=== PATIENT | female | born 1985 | race Caucasian/White ===

== ENCOUNTER → 2018-09-16 | Outpatient (CLI) | payer BC ==
[~2018-09-16] MED LIST: BCP; DOCU100C37 PO; FERR325T18 PO; IBUP-1780 PO; OXYC-465 PO; PREN1TAB71 PO
--- NOTE | 2018-09-16 13:24 | Diagnostic Imaging Report ---
INDICATION: survey. TECHNIQUE: Multiple real-time grayscale images were obtained over the gravid uterus. COMPARISON: None. FINDINGS: There is a single live fetus in a transverse presentation with head to the maternal left. heart rate was recorded at 142 beats per minute. The placenta is posterior and fundal. Amniotic fluid volume appears within normal limits. survey demonstrates kidneys and bladder to be unremarkable. The brain is unremarkable. There is a four-chamber heart. There is a three-vessel cord with normal insertion. The spine is unremarkable. Evaluation of the stomach is limited. Biometrical measurements are as follows: Biparietal 5.13 cm, age 21 weeks 4 days. Head circumference 18.74 cm, age 21 weeks 1 days. Abdominal circumference 16.90 cm, age 22 weeks 0 days. Femur length 3.47 cm, age 21 weeks 0 days. Sonographic estimate age: 21 weeks 3 days. Sonographic estimated date of delivery: 01/24/2019. Estimated Weight: 423 gm (+/- 62 gm). LMP percentile: 95%. heart rate: 142 beats per minute. number: 1 of 1. IMPRESSION: Single live fetus of approximately 21 weeks 3 days gestational age with estimated date of confinement sonographically of 01/24/2019. survey is unremarkable, although stomach was not well seen today. Dictated by: Dictated on workstation # [id number]
== END ==
LOC: RAD 10:01
PROVIDERS: ATTEND Obstetrics & Gynecology
DX: Z36.89 Encounter for other specified antenatal screening (principal); Z3A.21 21 weeks gestation of pregnancy
CPT/HCPCS: 76805

== ENCOUNTER 2019-01-30 06:00 | Inpatient (IN) | payer BC ==
[2019-01-30] VITALS (61 sets, daily range): BP systolic 75–133; BP diastolic 51–88
[~2019-01-30] VITALS: Ht 154.9 cm; Wt 86.0 kg
--- NOTE | 2019-01-30 05:55 | NUR ---
VERÓNICA ORTIZ presented to unit via ambulatory from home, accompanied by , with c/o . VERÓNICA ORTIZ weighed, gowned, voided, and to bed. EFHM and TOCO applied, VS taken. VERÓNICA ORTIZ oriented to bed controls, call light, TV, heat, and A/C controls.
[2019-01-30] MEDS ORDERED: ASPI-586 PO (06:52)
--- OUTSIDE RECORDS SUMMARY | 2019-01-30 06:52 | XMS REPORT | Clinical Summary ---
Author Author [facility] Organization 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
--- OUTSIDE RECORDS SUMMARY | 2019-01-30 06:53 | XMS REPORT | Continuity of Care Document ---
Author Organization Unknown Address Unknown Allergies Active Description Code Type Severity Reaction Onset Reported/Identified Relationship to Patient Clinical Status Yes codeine [id number] Drug Allergy Mild N/A 01/13/2014 Yes meperidine [id number] Drug Allergy Mild N/A 01/13/2014 Yes morphine [id number] Drug Allergy Mild N/A 01/13/2014 Yes oxycodone [id number] Drug Allergy Mild UPSET STOMACH, 01/13/2014 Yes latex [id number] Drug Allergy Unknown N/A 04/10/2016 Medications There is no data. Problems Date Dx Coded Attending Type Code Diagnosis Diagnosed By 01/13/2014 NICK PEREZ, HANNAH Waters Ot 789.00 ABDOMINAL PAIN, UNSPECIFIED SITE 04/06/2016 PROSPER PEREZ, LORENA Garcia Ot O14.03 MILD TO MODERATE PRE-ECLAMPSIA, THIRD TR 04/09/2016 PROSPER PEREZ, LORENA Garcia Ot O14.03 MILD TO MODERATE PRE-ECLAMPSIA, THIRD TR 04/10/2016 PROSPER PEREZ, LORENA Garcia Ot O14.03 MILD TO MODERATE PRE-ECLAMPSIA, THIRD TR 04/10/2016 PROSPER PEREZ, LORENA Garcia Ot O14.03 MILD TO MODERATE PRE-ECLAMPSIA, THIRD TR 04/10/2016 PROSPER PEREZ, LORENA Garcia Ot O14.03 MILD TO MODERATE PRE-ECLAMPSIA, THIRD TR 04/10/2016 PROSPER PEREZ, LORENA Garcia Ot O14.03 MILD TO MODERATE PRE-ECLAMPSIA, THIRD TR 04/10/2016 PROSPER PEREZ, LORENA Garcia Ot O14.03 MILD TO MODERATE PRE-ECLAMPSIA, THIRD TR 04/10/2016 PROSPER PEREZ, LORENA Garcia Ot O14.03 MILD TO MODERATE PRE-ECLAMPSIA, THIRD TR 04/13/2016 PROSPER PEREZ, LORENA Garcia Ot O14.03 MILD TO MODERATE PRE-ECLAMPSIA, THIRD TR 04/13/2016 LORENA CHENG MD, Ot O14.03 MILD TO MODERATE PRE-ECLAMPSIA, THIRD TR 04/13/2016 LORENA CHENG MD, Ot D62 ACUTE POSTHEMORRHAGIC ANEMIA 04/13/2016 LORENA CHENG MD, Ot L24.89 IRRITANT CONTACT DERMATITIS DUE TO OTHER 04/13/2016 LORENA CHENG MD, Ot L25.9 UNSPECIFIED CONTACT DERMATITIS, UNSPECIF 04/13/2016 LORENA CHENG MD, Ot O14.23 HELLP SYNDROME (HELLP), THIRD TRIMESTER 04/13/2016 LORENA CHENG MD, Ot O90.81 ANEMIA OF THE PUERPERIUM 04/13/2016 LORENA CHENG MD, Ot O99.713 DISEASES OF THE SKIN, SUBCU COMP PREGNAN 04/13/2016 LORENA CHENG MD, Ot O99.719 DISEASES OF THE SKIN, SUBCU COMP PREGNAN 04/13/2016 LORENA CHENG MD Ot Z23 ENCOUNTER FOR IMMUNIZATION 04/13/2016 LORENA CHENG MD Ot Z37.0 SINGLE LIVE 04/13/2016 LORENA CHENG MD, Ot Z3A.39 39 WEEKS GESTATION OF 04/15/2016 LORENA CHENG MD, Ot O14.03 MILD TO MODERATE PRE-ECLAMPSIA, THIRD TR 04/17/2016 LORENA CHENG MD, Ot O14.03 MILD TO MODERATE PRE-ECLAMPSIA, THIRD TR 04/17/2016 PROSPER PEREZ, LORENA Garcia Ot O14.03 MILD TO MODERATE PRE-ECLAMPSIA, THIRD TR 04/22/2016 PROSPER PEREZ, LORENA Garcia Ot O14.03 MILD TO MODERATE PRE-ECLAMPSIA, THIRD TR 05/14/2016 LORENA CHENG MD, Ot O14.03 MILD TO MODERATE PRE-ECLAMPSIA, THIRD TR 05/14/2016 LORENA CHENG MD, Ot O14.03 MILD TO MODERATE PRE-ECLAMPSIA, THIRD TR 05/23/2016 LORENA CHENG MD, Ot O14.03 MILD TO MODERATE PRE-ECLAMPSIA, THIRD TR 01/23/2017 PROSPER PEREZ, LORENA Garcia Ot O14.03 MILD TO MODERATE PRE-ECLAMPSIA, THIRD TR 03/26/2017 PROSPER PEREZ, LORENA Garcia Ot O14.03 MILD TO MODERATE PRE-ECLAMPSIA, THIRD TR 09/18/2018 BAO SANTANA DO Ot Z36.89 ENCOUNTER FOR OTHER SPECIFIED 09/18/2018 BAO SANTANA DO Ot Z3A.21 21 WEEKS GESTATION OF 09/26/2018 BAO SANTANA DO Ot Z36.89 ENCOUNTER FOR OTHER SPECIFIED 09/26/2018 BAO SANTANA DO Ot Z3A.21 21 WEEKS GESTATION OF Procedures Code Description Performed By Performed On [id number] 04/09/2016 [id number] 04/10/2016 Results Test Result Range Urine protein/creatinine mass ratio - 04/02/16 13:25 Urine protein measurement (mass/volume) < mg/dL 6-12 Urine creatinine measurement (mass/volume) 13 mg/dL 30-125 Urine protein/creatinine mass ratio TNP NR Urine protein/creatinine mass ratio - 04/09/16 13:45 Urine protein measurement (mass/volume) < mg/dL 6-12 Urine creatinine measurement (mass/volume) 34 mg/dL 30-125 [facility] Blood type T Indirect antibody screen panel - 04/09/16 17:50 ABO+Rh group OP NRG Transfusion band number [id number] [facility] Blood group antibody screen NEGATIVE [facility] Automated blood complete blood count (hemogram) panel - 04/10/16 05:21 Blood leukocytes automated count (number/volume) 7.5 10*3/uL 4.3-11.0 Blood erythrocytes automated count (number/volume) 4.32 10*6/uL 4.35-5.85 Venous blood hemoglobin measurement (mass/volume) 12.3 g/dL 11.5-16.0 Blood hematocrit (volume fraction) 37 % 35-52 Automated erythrocyte mean corpuscular volume 85 [foz_us] 80-99 Automated erythrocyte mean corpuscular hemoglobin (mass per erythrocyte) 29 pg 25-34 Automated erythrocyte mean corpuscular hemoglobin concentration measurement (mass/volume) 34 g/dL 32-36 Automated erythrocyte distribution width ratio 14.0 % 10.0- 14.5 Automated blood platelet count (count/volume) 113 10*3/uL 130-400 Automated blood platelet mean volume measurement 12.0 [foz_us] 7.4-10.4 Comprehensive metabolic panel - 04/10/16 05:21 Serum or plasma sodium measurement (moles/volume) 139 mmol/L 135-145 Serum or plasma potassium measurement (moles/volume) 3.4 mmol/L 3.6-5.0 Serum or plasma chloride measurement (moles/volume) 113 mmol/L 98-107 Carbon dioxide 16 mmol/L 21-32 Serum or plasma anion gap determination (moles/volume) 10 mmol/L 5-14 Serum or plasma urea nitrogen measurement (mass/volume) 8 mg/dL 7-18 Serum or plasma creatinine measurement (mass/volume) 0.75 mg/dL 0.60-1.30 Serum or plasma urea nitrogen/creatinine mass ratio 11 NRG Serum or plasma creatinine measurement with calculation of estimated glomerular filtration rate > NRG Serum or plasma glucose measurement (mass/volume) 88 mg/dL 70-105 Serum or plasma calcium measurement (mass/volume) 7.9 mg/dL 8.5-10.1 Serum or plasma total bilirubin measurement (mass/volume) 0.8 mg/dL 0.1-1.0 Serum or plasma alkaline phosphatase measurement (enzymatic activity/volume) 221 U/L 40-136 Serum or plasma aspartate aminotransferase measurement (enzymatic activity/volume) 19 U/L 5-34 Serum or plasma alanine aminotransferase measurement (enzymatic activity/volume) 10 U/L 0-55 Serum or plasma protein measurement (mass/volume) 5.3 g/dL 6.4-8.2 Serum or plasma albumin measurement (mass/volume) 2.8 g/dL 3.2-4.5 Serum or plasma uric acid measurement (mass/volume) - 04/10/16 05:21 Serum or plasma uric acid measurement (mass/volume) 5.0 mg/dL 2.6-7.2 Lactate dehydrogenase 1 [enzymatic activity/volume] in serum or plasma - 04/10/16 05:21 Lactate dehydrogenase 1 [enzymatic activity/volume] in serum or plasma 224 U/L 125-220 Complete blood count (CBC) with automated white blood cell (WBC) differential - 04/10/16 15:51 Blood leukocytes automated count (number/volume) 13.5 10*3/uL 4.3-11.0 Blood erythrocytes automated count (number/volume) 2.93 10*6/uL 4.35-5.85 Venous blood hemoglobin measurement (mass/volume) 8.3 g/dL 11.5-16.0 Blood hematocrit (volume fraction) 25 % 35-52 Automated erythrocyte mean corpuscular volume 85 [foz_us] 80-99 Automated erythrocyte mean corpuscular hemoglobin (mass per erythrocyte) 28 pg 25-34 Automated erythrocyte mean corpuscular hemoglobin concentration measurement (mass/volume) 33 g/dL 32-36 Automated erythrocyte distribution width ratio 13.6 % 10.0- 14.5 Automated blood platelet count (count/volume) 136 10*3/uL 130-400 Automated blood platelet mean volume measurement 11.8 [foz_us] 7.4-10.4 Automated blood neutrophils/100 leukocytes 85 % 42-75 Automated blood lymphocytes/100 leukocytes 9 % 12-44 Blood monocytes/100 leukocytes 7 % 0-12 Automated blood eosinophils/100 leukocytes 0 % 0-10 Automated blood basophils/100 leukocytes 0 % 0-10 Blood neutrophils automated count (number/volume) 11.4 10*3 1.8-7.8 Blood lymphocytes automated count (number/volume) 1.2 10*3 1.0-4.0 Blood monocytes automated count (number/volume) 0.9 10*3 0.0- 1.0 Automated eosinophil count 0.0 10*3/uL 0.0-0.3 Automated blood basophil count (count/volume) 0.0 10*3/uL 0.0-0.1 Comprehensive metabolic panel - 04/10/16 15:51 Serum or plasma sodium measurement (moles/volume) 136 mmol/L 135-145 Serum or plasma potassium measurement (moles/volume) 3.7 mmol/L 3.6-5.0 Serum or plasma chloride measurement (moles/volume) 110 mmol/L 98-107 Carbon dioxide 20 mmol/L 21-32 Serum or plasma anion gap determination (moles/volume) 6 mmol/L 5-14 Serum or plasma urea nitrogen measurement (mass/volume) 8 mg/dL 7-18 Serum or plasma creatinine measurement (mass/volume) 0.75 mg/dL 0.60-1.30 Serum or plasma urea nitrogen/creatinine mass ratio 11 NRG Serum or plasma creatinine measurement with calculation of estimated glomerular filtration rate > NRG Serum or plasma glucose measurement (mass/volume) 129 mg/dL 70-105 Serum or plasma calcium measurement (mass/volume) 6.8 mg/dL 8.5-10.1 Serum or plasma total bilirubin measurement (mass/volume) 0.6 mg/dL 0.1-1.0 Serum or plasma alkaline phosphatase measurement (enzymatic activity/volume) 175 U/L 40-136 Serum or plasma aspartate aminotransferase measurement (enzymatic activity/volume) 22 U/L 5-34 Serum or plasma alanine aminotransferase measurement (enzymatic activity/volume) 11 U/L 0-55 Serum or plasma protein measurement (mass/volume) 4.4 g/dL 6.4-8.2 Serum or plasma albumin measurement (mass/volume) 2.4 g/dL 3.2-4.5 Lactate dehydrogenase 1 [enzymatic activity/volume] in serum or plasma - 04/10/16 15:51 Lactate dehydrogenase 1 [enzymatic activity/volume] in serum or plasma 248 U/L 125-220 Complete blood count (CBC) with automated white blood cell (WBC) differential - 04/11/16 06:50 Blood leukocytes automated count (number/volume) 10.9 10*3/uL 4.3-11.0 Blood erythrocytes automated count (number/volume) 2.18 10*6/uL 4.35-5.85 Venous blood hemoglobin measurement (mass/volume) 6.1 g/dL 11.5-16.0 Blood hematocrit (volume fraction) 19 % 35-52 Automated erythrocyte mean corpuscular volume 88 [foz_us] 80-99 Automated erythrocyte mean corpuscular hemoglobin (mass per erythrocyte) 28 pg 25-34 Automated erythrocyte mean corpuscular hemoglobin concentration measurement (mass/volume) 32 g/dL 32-36 Automated erythrocyte distribution width ratio 13.8 % 10.0- 14.5 Automated blood platelet count (count/volume) 130 10*3/uL 130-400 Automated blood platelet mean volume measurement 11.8 [foz_us] 7.4-10.4 Automated blood neutrophils/100 leukocytes 73 % 42-75 Automated blood lymphocytes/100 leukocytes 19 % 12-44 Blood monocytes/100 leukocytes 7 % 0-12 Automated blood eosinophils/100 leukocytes 1 % 0-10 Automated blood basophils/100 leukocytes 0 % 0-10 Blood neutrophils automated count (number/volume) 8.0 10*3 1.8-7.8 Blood lymphocytes automated count (number/volume) 2.1 10*3 1.0-4.0 Blood monocytes automated count (number/volume) 0.8 10*3 0.0- 1.0 Automated eosinophil count 0.1 10*3/uL 0.0-0.3 Automated blood basophil count (count/volume) 0.0 10*3/uL 0.0-0.1 Comprehensive metabolic panel - 04/11/16 06:50 Serum or plasma sodium measurement (moles/volume) 136 mmol/L 135-145 Serum or plasma potassium measurement (moles/volume) 4.0 mmol/L 3.6-5.0 Serum or plasma chloride measurement (moles/volume) 110 mmol/L 98-107 Carbon dioxide 20 mmol/L 21-32 Serum or plasma anion gap determination (moles/volume) 6 mmol/L 5-14 Serum or plasma urea nitrogen measurement (mass/volume) 9 mg/dL 7-18 Serum or plasma creatinine measurement (mass/volume) 0.78 mg/dL 0.60-1.30 Serum or plasma urea nitrogen/creatinine mass ratio 12 NRG Serum or plasma creatinine measurement with calculation of estimated glomerular filtration rate > NRG Serum or plasma glucose measurement (mass/volume) 82 mg/dL 70-105 Serum or plasma calcium measurement (mass/volume) 7.1 mg/dL 8.5-10.1 Serum or plasma total bilirubin measurement (mass/volume) 0.5 mg/dL 0.1-1.0 Serum or plasma alkaline phosphatase measurement (enzymatic activity/volume) 162 U/L 40-136 Serum or plasma aspartate aminotransferase measurement (enzymatic activity/volume) 19 U/L 5-34 Serum or plasma alanine aminotransferase measurement (enzymatic activity/volume) 12 U/L 0-55 Serum or plasma protein measurement (mass/volume) 4.3 g/dL 6.4-8.2 Serum or plasma albumin measurement (mass/volume) 2.4 g/dL 3.2-4.5 Lactate dehydrogenase 1 [enzymatic activity/volume] in serum or plasma - 04/11/16 06:50 Lactate dehydrogenase 1 [enzymatic activity/volume] in serum or plasma 255 U/L 125-220 Automated blood complete blood count (hemogram) panel - 04/11/16 18:00 Blood leukocytes automated count (number/volume) 9.6 10*3/uL 4.3-11.0 Blood erythrocytes automated count (number/volume) 2.24 10*6/uL 4.35-5.85 Venous blood hemoglobin measurement (mass/volume) 6.4 g/dL 11.5-16.0 Blood hematocrit (volume fraction) 20 % 35-52 Automated erythrocyte mean corpuscular volume 87 [foz_us] 80-99 Automated erythrocyte mean corpuscular hemoglobin (mass per erythrocyte) 29 pg 25-34 Automated erythrocyte mean corpuscular hemoglobin concentration measurement (mass/volume) 33 g/dL 32-36 Automated erythrocyte distribution width ratio 14.0 % 10.0- 14.5 Automated blood platelet count (count/volume) 147 10*3/uL 130-400 Automated blood platelet mean volume measurement 10.7 [foz_us] 7.4-10.4 Encounters ACCT No. Visit Date/Time Discharge Status Pt. Type Provider Facility Loc./Unit Complaint [id number] 09/16/2018 10:01:00 09/16/2018 23:59:59 CLS Outpatient BAO SANTANA DO S [facility] RAD [id number] 04/09/2016 17:06:00 04/13/2016 12:40:00 DIS Inpatient LORENA CHENG MD [facility] WS INDUCTION [id number] 04/09/2016 13:30:00 04/09/2016 23:59:59 CLS Outpatient LORENA CHENG MD [facility] LABNPT MILD TO MODERATE PRE-ECLAMPSIA, 3RD TRIMESTER [id number] 04/02/2016 13:53:00 04/02/2016 23:59:59 CLS Outpatient LORENA CHENG MD [facility] LABNPT MILD TO MODERATE PRE ECLAMPSIA, THIRD TRIMESTER [id number] 01/13/2014 05:41:00 01/13/2014 06:50:00 DIS Emergency HANNAH ROMERO MD [facility] ER ABD PAIN
[2019-01-30] MEDS ORDERED: LACTATED RINGERS 1,000 ML IV ONE ×2 (06:55→10:56)
[2019-01-30] MEDS: D5 LR IV SOLUTION 1,000 ML IV SCH ×3 (06:58→22:15)
[2019-01-30 07:02] LABS: BASOPHILS % (AUTO) 0 % (0-10); EOSINOPHILS # (AUTO) 0.1 10^3/uL (0.0-0.3); EOSINOPHILS % (AUTO) 1 % (0-10); HEMATOCRIT 37 % (35-52); HEMOGLOBIN 12.3 G/DL (11.5-16.0); LYMPHOCYTES # (AUTO) 2.1 X 10^3 (1.0-4.0); LYMPHOCYTES % (AUTO) 24 % (12-44); MEAN CORPUSCULAR HEMOGLOBIN 30 PG (25-34); MEAN CORPUSCULAR HGB CONC 34 G/DL (32-36); MEAN CORPUSCULAR VOLUME 90 FL (80-99); MEAN PLATELET VOLUME 12.3 FL (7.4-10.4); MONOCYTES # (AUTO) 0.8 X 10^3 (0.0-1.0); MONOCYTES % (AUTO) 9 % (0-12); NEUTROPHILS # (AUTO) 5.8 X 10^3 (1.8-7.8); NEUTROPHILS % (AUTO) 66 % (42-75); PLATELET COUNT 129 10^3/uL (130-400); RED CELL DISTRIBUTION WIDTH 15.8 % (10.0-14.5); WHITE BLOOD COUNT 8.8 10^3/uL (4.3-11.0)
[2019-01-30] MEDS ORDERED: SUFENTA 0.6MCG/ML BUPIVA 0.125 100 ML ONE (07:25)
[2019-01-30] MEDS ORDERED: fentaNYL INJECTION 100 MCG/2 ML AMP ONE (07:32)
[2019-01-30] MEDS ORDERED: BUPIVACAINE 0.25% 30 ML (SENSORCAINE) VIAL ONE (07:32)
[2019-01-30] MEDS ORDERED: OXYTOCIN/NORMAL SALINE 500 ML IV SCH (07:58)
--- NOTE | 2019-01-30 07:58 | History & Physical-OB ---
OB - Chief Complaint & HPI Date/Time Date of Admission: Date of Admission: Jan 30, 2019 at 06:49 Date seen by a Provider: Jan 30, 2019 Time Seen by a Provider: 08:00 Chief Complaint/History OB-Reason for Admission/Chief: Induction of Labor Hx : 2 Hx Para: 1 Expected Date of Delivery: Feb 01, 2019 Gestational Age in Weeks: 39 Gestational Age in Days: 5 Admission Nurse Assessment Rev: Yes History of Labs O pos Antibody neg RI RPR NR HBsAg NR HIV NR GC neg GBS neg Allergies and Home Medications Allergies Coded Allergies: codeine (Verified Allergy, Mild, 01/13/14) meperidine (Verified Allergy, Mild, 01/13/14) morphine (Verified Allergy, Mild, 01/13/14) latex (Verified Allergy, Unknown, 04/10/16) Home Medications Aspirin 81 Mg Tablet.dr, 81 MG PO DAILY, (Reported) Ferrous Sulfate 325 Mg Tablet, 325 MG PO BID WITH MEALS Prescribed by: LORENA CUTLER on 04/13/16 0743 Vit/Iron Fumarate/FA 1 Each Tablet, 1 EACH PO DAILY, (Reported) Patient Home Medication List Home Medication List Reviewed: Yes OB - History Hx of Present Care: Yes Ultrasounds: Normal mid trimester US Obstetrical Complications: None Medical Complications: None Delivery History Hx Blood Disorders: No Patient Past Medical History n/a OB - Admission Exam Physical Exam Vitals: Vital Signs 01/30/19 07:00 Temp 99.0 Pulse 100 Resp 18 B/P (MAP) 107/70 (82) HEENT: NCAT Heart: Rhythm Normal Lungs: Clear Abdomen: Gravid Extremities: Normal Reflexes: Normal Cervical Dilatation: 1cm Effacement: 75% Station: -2 Membranes: Intact Heart Rate: 140's Accelerations: Accelerations Present Decelerations: No Decelerations Short Term Variability: Present Half-Way Variability: Average (6-25) Contractions on Admission: >10 Minutes Apart Hopper Scoring Tool (Modified) Dilation (cm): 1-2cm (1) Effacement (%): 51-79% (2) Descent/Station: -1,0 (2) Cervix Consistency: Soft (2) Cervix Position: Anterior (2) Hopper Score: 8 Labs Laboratory Tests Test 01/30/19 06:50 Range/Units White Blood Count 8.8 4.3-11.0 10^3/uL Red Blood Count 4.10 L 4.35-5.85 10^6/uL Hemoglobin 12.3 11.5-16.0 G/DL Hematocrit 37 35-52 % Mean Corpuscular Volume 90 80-99 FL Mean Corpuscular Hemoglobin 30 25-34 PG Mean Corpuscular Hemoglobin Concent 34 32-36 G/DL Red Cell Distribution Width 15.8 H 10.0-14.5 % Platelet Count 129 L 130-400 10^3/uL Mean Platelet Volume 12.3 H 7.4-10.4 FL Neutrophils (%) (Auto) 66 42-75 % Lymphocytes (%) (Auto) 24 12-44 % Monocytes (%) (Auto) 9 0-12 % Eosinophils (%) (Auto) 1 0-10 % Basophils (%) (Auto) 0 0-10 % Neutrophils # (Auto) 5.8 1.8-7.8 X 10^3 Lymphocytes # (Auto) 2.1 1.0-4.0 X 10^3 Monocytes # (Auto) 0.8 0.0-1.0 X 10^3 Eosinophils # (Auto) 0.1 0.0-0.3 10^3/uL Basophils # (Auto) 0.0 0.0-0.1 10^3/uL OB - Assessment/Plan/Diagnosis Assessment Assessment: induction of labor Admission Dx 33 yo @ 39 weeks Previous c/s- TOLAC GBS neg Admission Status: Inpatient Order (span 2 midnights) Reason for Inpatient Admission: Induction of labor at term Plan Plan: Induction Induction Method: per Pitocin Protocol BAO SANTANA DO Jan 30, 2019 07:58
[2019-01-30] MEDS: EPIDURAL (SUFENTA 0.6MCG/ML BUPIVA 0.125%) 100 ML BAG EPI SCH ×3 (08:02→23:15)
[2019-01-30] MEDS ORDERED: PNV11TAB5 PO (08:28)
[2019-01-30] MEDS ORDERED: FERR325T18 PO (08:28)
[2019-01-30] MEDS ORDERED: NALOXONE 0.4 MG/ML 1 ML (NARCAN) VIAL IV PRN (11:00)
[2019-01-30] MEDS ORDERED: ONDANSETRON 4 MG/2 ML (SDV) Z0FRAN IV PRN (11:00)
[2019-01-30] MEDS ORDERED: CATHETER FLUSH 10 ML SYR IV PRN (11:00)
[2019-01-30] MEDS ORDERED: diphenhydrAMINE 50 MG/ML INJ (BENADRYL) IV PRN (11:00)
[2019-01-30] MEDS: CATHETER FLUSH 10 ML SYR IV SCH ×2 (14:00→20:08)
[2019-01-30] MEDS ORDERED: LIDOCAINE/EPI 2% 1:200,00 (XYLOCAINE) 10 ML VIAL ONE (23:39)
[2019-01-31] VITALS (10 sets, daily range): BP systolic 90–129; BP diastolic 55–74
[2019-01-31] MEDS ORDERED: IBUPROFEN 600 MG (MOTRIN) TAB PO ONE (00:39)
[2019-01-31] MEDS: OXYTOCIN/NORMAL SALINE 500 ML IV SCH ×2 (00:41→01:13)
--- NOTE | 2019-01-31 00:42 | OB Labor & Delivery Record ---
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 Variability: Average (6-10) Short Term Variability: Present Presentation: Vertex Vital Signs VS - Last 72 Hours, by Label 01/30/19 01/30/19 01/30/19 01/30/19 07:00 07:30 07:42 07:45 Temp 99.0 98.6 Pulse 100 76 83 Resp 18 16 16 B/P (MAP) 107/70 (82) 122/74 (90) 107/71 (83) Pulse Ox 97 O2 Delivery Room Air Room Air 01/30/19 01/30/19 01/30/19 01/30/19 07:47 07:53 07:54 07:55 Pulse 79 72 66 55 Resp 16 16 16 16 B/P (MAP) 121/83 (96) 101/77 (85) 101/77 (85) 75/51 (59) Pulse Ox 100 100 100 98 O2 Delivery Room Air Room Air Room Air Room Air 01/30/19 01/30/19 01/30/19 01/30/19 08:00 08:02 08:15 08:30 Pulse 74 77 90 105 Resp 16 16 16 16 B/P (MAP) 104/66 (79) 92/60 (71) 109/55 (73) 107/58 (74) Pulse Ox 97 100 97 O2 Delivery Room Air Room Air Room Air Room Air 01/30/19 01/30/19 01/30/19 01/30/19 08:45 09:00 09:15 09:30 Pulse 95 115 106 112 Resp 16 16 16 16 B/P (MAP) 102/67 (79) 105/65 (78) 132/56 (81) Pulse Ox 100 98 98 97 O2 Delivery Room Air Room Air Room Air Room Air 01/30/19 01/30/19 01/30/19 01/30/19 09:45 10:00 10:15 10:30 Pulse 97 121 88 96 Resp 16 16 16 16 B/P (MAP) 106/66 (79) 116/70 (85) Pulse Ox 96 99 97 94 O2 Delivery Room Air Room Air Room Air Room Air 01/30/19 01/30/19 01/30/19 01/30/19 10:45 11:00 11:15 11:30 Temp 98.2 Pulse 90 90 85 88 Resp 16 16 16 16 B/P (MAP) 109/67 (81) 109/73 (85) 109/72 (84) 111/72 (85) Pulse Ox 98 96 98 95 O2 Delivery Room Air Room Air Room Air Room Air 01/30/19 01/30/19 01/30/19 01/30/19 11:45 12:00 12:15 12:30 Pulse 84 92 84 83 Resp 16 16 16 16 B/P (MAP) 111/74 (86) 112/76 (88) 120/69 (86) Pulse Ox 98 96 98 99 O2 Delivery Room Air Room Air Room Air Room Air 01/30/19 01/30/19 01/30/19 01/30/19 12:45 13:00 13:15 13:30 Pulse 87 93 95 92 Resp 16 16 16 16 B/P (MAP) 121/83 (96) 114/76 (89) Pulse Ox 98 98 98 99 O2 Delivery Room Air Room Air Room Air Room Air 01/30/19 01/30/19 01/30/19 01/30/19 13:45 14:00 14:15 14:30 Pulse 82 90 80 88 Resp 16 16 16 16 B/P (MAP) 109/74 (86) 109/71 (84) 115/75 (88) Pulse Ox 98 97 99 99 O2 Delivery Room Air Room Air Room Air Room Air 01/30/19 01/30/19 01/30/19 01/30/19 14:45 15:00 15:15 15:30 Temp 98.9 Pulse 85 96 85 84 Resp 16 16 16 16 B/P (MAP) 112/78 (89) 127/80 (96) 120/85 (97) Pulse Ox 100 100 100 97 O2 Delivery Room Air Room Air Room Air Room Air 01/30/19 01/30/19 01/30/19 01/30/19 15:45 16:00 16:15 16:30 Pulse 102 91 90 85 Resp 16 16 16 16 B/P (MAP) 123/76 (92) 117/71 (86) 119/72 (88) 123/76 (92) Pulse Ox 98 97 98 100 O2 Delivery Room Air Room Air Room Air Room Air 01/30/19 01/30/19 01/30/19 01/30/19 16:45 17:00 17:15 17:30 Temp 98.9 Pulse 83 84 95 89 Resp 16 16 16 16 B/P (MAP) 130/81 (97) 120/56 (77) 127/88 (101) 118/77 (91) Pulse Ox 98 100 99 100 O2 Delivery Room Air Room Air Room Air Room Air 01/30/19 01/30/19 01/30/19 01/30/19 17:45 18:00 18:15 18:30 Pulse 88 99 97 90 Resp 16 16 16 16 B/P (MAP) 122/78 (93) 112/74 (87) 115/72 (86) Pulse Ox 99 99 98 100 O2 Delivery Room Air Room Air Room Air Room Air 01/30/19 01/30/19 01/30/19 01/30/19 18:45 19:00 19:15 19:30 Temp 99.2 Pulse 94 93 93 91 Resp 16 16 16 16 B/P (MAP) 133/79 (97) 123/86 (98) 130/74 (92) 125/70 (88) Pulse Ox 99 99 100 98 O2 Delivery Room Air Room Air Room Air Room Air 01/30/19 01/30/19 01/30/19 01/30/19 19:45 20:00 20:15 20:30 Temp 99.5 Pulse 88 106 100 86 Resp 16 16 16 16 B/P (MAP) 130/78 (95) 121/69 (86) 125/70 (88) Pulse Ox 99 94 100 95 O2 Delivery Room Air Room Air Room Air Room Air 01/30/19 01/30/19 01/30/19 01/30/19 20:45 20:45 21:00 21:15 Temp 100.4 Pulse 104 92 93 95 Resp 16 16 16 18 B/P (MAP) 123/74 (90) 121/72 (88) 123/79 (94) Pulse Ox 97 96 94 96 O2 Delivery Room Air Room Air Room Air Room Air 01/30/19 01/30/19 01/30/19 21:30 21:45 22:00 Pulse 86 82 82 Resp 18 18 18 B/P (MAP) 120/75 (90) 121/74 (90) 127/74 (91) Pulse Ox 96 96 97 O2 Delivery Room Air Room Air Room Air Rupture of Membranes Spontaneous Ruture of Membrane: No Amniotic Membrane Rupture Time: 1410 Amniotic Membrane Fluid Desc.: Clear Vaginal Bleeding Description: Normal Show Induction/Anesthesia Epidural Cath Placement - Time: 0754 Progress/Notes Pitocin augmentation used to max dose of 20 mu/min, patient progressed to comp lete and +1 station when she began having repetitive variable and prolonged heart rate decelerations. L&D Stage2 Monitors and Tracing Monitor Mode: External Heart Rate: 135 Monitor Accelerations: Uniform Monitor Decelerations: Variable Halfway Variability: Minimal (3-5) Short Term Variability: Absent Position: Right Occiput Anterior Presentation: Vertex Signs of Distress by FHT Signs of Distress Patient was pushing adequately, but heart rate decelerations continued and variability diminished. Due to recurrent, nonreassuring FHR I recommended low vacuum extraction due to progress to +2-3 station. Kiwi vacuum placed down midsagital suture line, between ant and post fontanelle. With next contraction, RML was cut, and 500 mmHg was applied by the handpiece, with gentle extension of the head it was delivery over RML. Anterior and posterior shoulders delivered without difficulty. Cord Descript/Complications Cord Vessel Description: 3 Vessels Delivery Type Delivery Method: Low Vacuum Extraction Anterior Shoulder: Right Episiotomy/Perineal Laceration Laceraction(s)/Extensions: Yes Episiotomy Description: Right Mediolateral Degree (describe repair) RML repaired using 3-0 and 2-0 vicryl suture in usual fashion Condition of Delivery 1 minute Comment: 8 5 minute Comment: 9 Notes Live male infant weight 8lbs 3 oz. Condition of Condition of : Living Exam: No Observed Abnormalities Resuscitation Resuscitation: N/A - Spontaneous Resp L&D Stage3 Stage Three Stage III Date: Jan 31, 2019 Pictocin Pitocin Administration mu/min: 18 Pitocin ml/hr: 18 Pitocin Administration Comment: Pitocin wide open 30mu/min at delivery of placenta Placenta Delivery Placenta Delivery: Spontaneous Delivery Summary Summary Estimated blood loss (mL): 350 Attending at delivery: Bao Santana DO Condition of Delivery Examined: Cervix Examined, Uterus Explored Post Hemorrhage: No Condition of Mother stable Condition of (s) stable BAO SANTANA DO Jan 31, 2019 00:42
[2019-01-31] MEDS ORDERED: DIBUCAINE (NUPERCAINAL) 1% OINT 30 GM TOP PRN (00:45)
[2019-01-31] MEDS ORDERED: BENZOCAINE/MENTHOL (DERMOPLAST) 56 ML CAN TP PRN (00:45)
[2019-01-31] MEDS: IBUPROFEN 600 MG (MOTRIN) TAB PO SCH ×4 (00:45→18:02)
[2019-01-31] MEDS ORDERED: HYDROcodone/APAP 5 MG/325 MG (LORTAB) TAB PO PRN (00:45)
[2019-01-31] MEDS ORDERED: MEASLES,MUMPS,RUBELLA 1 EA INJ SQ ONE (00:45)
[2019-01-31] MEDS ORDERED: TETANUS,DIPTH,PERTUSS P/F (BOOSTRIX) 0.5 ML VIAL IM ONE (00:45)
[2019-01-31] MEDS ORDERED: BENZOCAINE/MENTHOL (DERMOPLAST) 56 ML CAN TP ONE (01:00)
[2019-01-31] MEDS ORDERED: WITCH HAZEL(TUCKS) 40 EA JAR ONE (01:00)
[2019-01-31] MEDS: WITCH HAZEL(TUCKS) 40 EA JAR TOP PRN (01:29)
--- NOTE | 2019-01-31 02:00 | NUR ---
Pt to room via wheelchair with this RN, Nursery RN, S.O., and infant at side. Oriented to new room. packet papers discussed. Pt denies any questions or concerns at time.
[2019-01-31] MEDS ORDERED: CATHETER FLUSH 10 ML SYR IV SCH (06:00)
--- NOTE | 2019-01-31 07:17 | Discharge Inst-Women's Service ---
Discharge Inst-Women's Serv Depart Medication/Instructions New, Converted or Re-Newed RX: RX on Chart Final Diagnosis PPD 1 VAVD and Consults/Follow Up Additional Follow Up: Yes Orders/Referrals Dr. Santana in 6 weeks Activity Activity: Activity as Tolerated Driving Instructions: No Driving for 1 Week NO SMOKING: NO SMOKING Nothing Inside Vagina: No Douching, No [place], No Tampons Diet Discharge Diet: No Restrictions Symptoms to Report to : Bleeding Excessive, Pain Increased, Fever Over 101 Degrees F, Vaginal Bleeding Increase, Questions/Concerns For Any Problems or Questions: Contact Your Physician BAO SANTANA DO Jan 31, 2019 07:17
[2019-01-31] MEDS ORDERED: Benzocaine/Menthol TP (07:19)
[2019-01-31] MEDS ORDERED: DOCU100C37 PO (07:19)
[2019-01-31] MEDS ORDERED: IBUP-844 PO (07:19)
[2019-01-31] MEDS: FERROUS SULF 325 MG (IRON) TAB PO SCH (08:39)
[2019-01-31] MEDS: DOCUSATE SODIUM 100 MG (COLACE) CAP PO SCH ×2 (08:39→20:48)
[2019-01-31] MEDS: PRENATAL VITAMIN 1 EA TAB PO SCH (08:39)
--- NOTE | 2019-01-31 09:18 | Anesthesia-Regional Post-Op ---
Regional Patient Condition Mental Status: Alert, Oriented x3 Circulation: Same as Pre-Op Headache: Absent Sensation: Full Recovery Motor Block: Absent Post Op Complications Complications None Follow Up Care/Instructions Patient Instructions None needed. Anesthesia/Patient Condition Patient is doing well, no complaints, stable vital signs, no apparent adverse anesthesia problems. No complications reported per nursing. D/C home per [facility] Criteria: Yes ALMA TRAMMELL CRNA Jan 31, 2019 09:18
[2019-02-01 00:55] VITALS: BP 109/70
[2019-02-01] MEDS: IBUPROFEN 600 MG (MOTRIN) TAB PO SCH ×4 (00:55→17:58)
[2019-02-01 06:05] VITALS: BP 97/63
[2019-02-01 06:44] LABS: BASOPHILS % (AUTO) 0 % (0-10); EOSINOPHILS # (AUTO) 0.2 10^3/uL (0.0-0.3); EOSINOPHILS % (AUTO) 2 % (0-10); HEMATOCRIT 29 % (35-52); HEMOGLOBIN 9.5 G/DL (11.5-16.0); LYMPHOCYTES # (AUTO) 1.7 X 10^3 (1.0-4.0); LYMPHOCYTES % (AUTO) 16 % (12-44); MEAN CORPUSCULAR HEMOGLOBIN 30 PG (25-34); MEAN CORPUSCULAR HGB CONC 33 G/DL (32-36); MEAN CORPUSCULAR VOLUME 91 FL (80-99); MEAN PLATELET VOLUME 11.9 FL (7.4-10.4); MONOCYTES # (AUTO) 0.8 X 10^3 (0.0-1.0); MONOCYTES % (AUTO) 7 % (0-12); NEUTROPHILS # (AUTO) 8.2 X 10^3 (1.8-7.8); NEUTROPHILS % (AUTO) 75 % (42-75); PLATELET COUNT 113 10^3/uL (130-400); RED CELL DISTRIBUTION WIDTH 15.9 % (10.0-14.5); WHITE BLOOD COUNT 10.9 10^3/uL (4.3-11.0)
--- NOTE | 2019-02-01 07:44 | Postpartum Progress Note ---
Note Note Day # 1 Subjective: Patient is without complaints. Ambulating, voiding. Tolerating a regular diet without nausea or vomiting. Normal lochia. Pain is well controlled with oral pain medications. Objective: Physical Exam: General - Alert and oriented, no apparent distress Abdomen - Soft, appropriately tender to palpation, non-distended, fundus firm at umbilicus Extremities - no edema, negative Gloria's bilaterally Assessment: PPD 1 VAVD Acute blood loss anemia Successful Plan: Routine care. Encourage breast feeding. Encourage ambulation. Ferrous sulfate supplementation. Plan for discharge today Vitals - Labs Vital Signs - I&O Vital Signs Date Time Temp Pulse Resp B/P (MAP) Pulse Ox O2 Delivery O2 Flow Rate FiO2 02/01/19 06:05 98.7 78 18 97/63 (74) 93 02/01/19 00:55 98.5 76 16 109/70 (83) 97 01/31/19 20:50 98.3 85 18 116/74 (88) 97 01/31/19 15:21 98.7 94 16 90/55 (67) 98 Room Air 01/31/19 08:31 99.0 73 18 111/69 (83) 97 Room Air I & O 02/01/19 07:00 Intake Total 1800 ml Balance 1800 ml Labs Laboratory Tests 02/01/19 06:05: White Blood Count 10.9, Red Blood Count 3.14L, Hemoglobin 9.5#L, Hematocrit 29L, Mean Corpuscular Volume 91, Mean Corpuscular Hemoglobin 30, Mean Corpuscular Hemoglobin Concent 33, Red Cell Distribution Width 15.9H, Platelet Count 113L, Mean Platelet Volume 11.9H, Neutrophils (%) (Auto) 75, Lymphocytes (%) (Auto) 16, Monocytes (%) (Auto) 7, Eosinophils (%) (Auto) 2, Basophils (%) (Auto) 0, Neutrophils # (Auto) 8.2H, Lymphocytes # (Auto) 1.7, Monocytes # (Auto) 0.8, Eosinophils # (Auto) 0.2, Basophils # (Auto) 0.0 BAO SANTANA DO Feb 01, 2019 07:44
[2019-02-01 07:54] VITALS: BP 102/75
--- NOTE | 2019-02-01 08:25 | NUR ---
here to see pt. no new orders received @ time.
--- NOTE | 2019-02-01 08:45 | NUR ---
Palak to alessadnra for Dr Dupree to assess. Addendum: 02/01/19 at 0930 by NEELAM MENDOZA RN yuki stewart
--- NOTE | 2019-02-01 09:15 | NUR ---
Infant back out to mothers room per Dr Dupree. Dr Dupree reviewed plan of care for infant with mother. Addendum: 02/01/19 at 0930 by NEELAM MENDOZA RN Marilyn Chairez
[2019-02-01] MEDS: PRENATAL VITAMIN 1 EA TAB PO SCH (09:25)
[2019-02-01] MEDS: FERROUS SULF 325 MG (IRON) TAB PO SCH (09:25)
[2019-02-01] MEDS: DOCUSATE SODIUM 100 MG (COLACE) CAP PO SCH (09:25)
--- NOTE | 2019-02-01 09:25 | NUR ---
initial shift assessment completed see interventions for further. scheduled medications given, see eMar for further. denies c/o's pain @ time. infant @ side, appropriate bonding noted.
[2019-02-01 14:37] VITALS: BP 87/53
--- NOTE | 2019-02-01 15:00 | NUR ---
report given to Ana RN
[2019-02-01 18:00] VITALS: BP 106/63
--- NOTE | 2019-02-01 18:00 | NUR ---
PT IN BED, FAMILY AT THE BEDSIDE. VS OBTAINED. ROUTINE MOTRIN GIVEN PO; SEE EMAR FOR FURTHER. PT UP IN ROOM WITH OLDER CHILD. NO NEEDS VOICED AT THIS TIME.
[2019-02-02] VITALS: BP 111/71
[2019-02-02 06:39] VITALS: BP 110/68
[2019-02-02] MEDS: IBUPROFEN 600 MG (MOTRIN) TAB PO SCH ×3 (06:39→12:35)
--- NOTE | 2019-02-02 07:28 | Postpartum Progress Note ---
Note Note Day # 1 Subjective: Patient is without complaints. Ambulating, voiding. Tolerating a regular diet without nausea or vomiting. Normal lochia. Pain is well controlled with oral pain medications. Objective: Physical Exam: General - Alert and oriented, no apparent distress Abdomen - Soft, appropriately tender to palpation, non-distended, fundus firm at umbilicus Extremities - no edema, negative Gloria's bilaterally Assessment: PPD 2 VAVD Acute blood loss anemia Plan: Routine care. Encourage breast feeding. Encourage ambulation. Ferrous sulfate supplementation. Plan for discharge today Vitals - Labs Vital Signs - I&O Vital Signs Date Time Temp Pulse Resp B/P (MAP) Pulse Ox O2 Delivery O2 Flow Rate FiO2 02/02/19 06:39 98.0 77 18 110/68 (82) 98 Room Air 02/02/19 00:00 97.9 83 18 111/71 (84) 99 Room Air 02/01/19 18:00 99.5 81 18 106/63 (77) 99 Room Air 02/01/19 14:37 98.9 86 18 87/53 (64) 97 Room Air 02/01/19 07:54 98.6 81 18 102/75 (84) 96 BAO SANTANA DO Feb 02, 2019 07:28
[2019-02-02 08:15] VITALS: BP 107/62
--- NOTE | 2019-02-02 08:30 | NUR ---
A.M. ASSESSMENT COMPLETED. VSS.
[2019-02-02] MEDS: PRENATAL VITAMIN 1 EA TAB PO SCH (08:41)
[2019-02-02] MEDS: DOCUSATE SODIUM 100 MG (COLACE) CAP PO SCH ×2 (08:41)
[2019-02-02] MEDS: FERROUS SULF 325 MG (IRON) TAB PO SCH (08:42)
[2019-02-02] MEDS: WITCH HAZEL(TUCKS) 40 EA JAR TOP PRN (08:43)
--- NOTE | 2019-02-02 12:00 | NUR ---
SEVERAL ATTEMPTS TO RESTART 'S IV IN THE NURSERY. MOM KEPT INFORMED. SEE NURSERY NOTES.
[2019-02-02 13:00] VITALS: BP 110/66
--- NOTE | 2019-02-02 15:00 | NUR ---
AMBULATING WELL IN THE HALLWAY. NO COMPLAINTS.
[2019-02-02 16:30] VITALS: BP 111/70
--- NOTE | 2019-02-02 17:15 | NUR ---
DISCHARGE INSTRUCTIONS REVIEWED WITH COPY TO PT. STATES UNDERSTANDING OF ALL INSTRUCTIONS AND NEED TO F/U SCHEDULED AND NEEDED. RXS GIVEN EARLIER FOR SPOUSE TO FILL.
[2019-02-02 18:00] VITALS: BP 111/70
--- NOTE | 2019-02-02 18:00 | NUR ---
DISMISSED FROM WS IN STABLE CONDITION. PT TO REMAIN A ROOMING IN MOM R/T INFANT HAVING TO REMAIN A PT.
== END 2019-02-02 18:00 | disposition home or self-care (01) | DRG 806 ==
LOC: LDRP 06:49
PROVIDERS: ADMIT Obstetrics & Gynecology; ATTEND Obstetrics & Gynecology
PROC: 3E033VJ Introduction of Other Hormone into Peripheral Vein, Percutaneous Approach (ICD-10-PCS; 2019-01-30)
PROC: 10D07Z6 Extraction of Products of Conception, Vacuum, Via Natural or Artificial Opening (ICD-10-PCS; principal; 2019-01-31)
PROC: 0W8NXZZ Division of Female Perineum, External Approach (ICD-10-PCS; 2019-01-31)
DX: O34.211 Maternal care for low transverse scar from previous cesarean delivery (principal); O76 Abnormality in fetal heart rate and rhythm complicating labor and delivery; O90.81 Anemia of the puerperium; D62 Acute posthemorrhagic anemia; Z3A.39 39 weeks gestation of pregnancy; Z37.0 Single live birth; Z88.5 Allergy status to narcotic agent; Z79.82 Long term (current) use of aspirin
CPT/HCPCS: 36415; 85025; 86850; 86900; 86901

== ENCOUNTER → 2022-10-09 | Outpatient (CLI) | payer BC ==
[~2022-10-09] MED LIST changes: +ASPI-586 PO; +Benzocaine/Menthol TP; +IBUP-844 PO; -OXYC-465 PO; +OXYC-556 PO; +PNV11TAB5 PO
--- NOTE | 2022-10-09 13:43 | Diagnostic Imaging Report ---
INDICATION: Routine care. COMPARISON: None. TECHNIQUE: Multiple real-time grayscale images were obtained over the gravid uterus. FINDINGS: The cervix measures 4.2 cm in length. There is a single live intrauterine gestation in breech presentation. The placenta is anterior without evidence of previa. There is a small placental martin. The heart rate measures 143 BPM. The left ventricular outflow tract is seen. A four-chamber heart is seen. The stomach is seen. The lateral ventricle is seen. The bladder is seen. There are two umbilical arteries, consistent with a three-vessel cord. The profile is suboptimally seen due to positioning. The cord insertion is seen. The kidneys are seen. The cord insertion is seen. The cerebellum and cisterna magna are seen. The lower spine is seen. The amniotic fluid index measures 14.9 cm. The upper spine is seen. The right ventricular outflow tract is seen. A three-vessel cord is seen with Doppler flow. Biometrical measurements are as follows: Biparietal 4.74 cm, age 20 weeks 3 days. Head circumference 17.87 cm, age 20 weeks 3 days. Abdominal circumference 15.35 cm, age 20 weeks 4 days. Femur length 3.28 cm, age 20 weeks 2 days. Sonographic estimate age: 20 weeks 3 days. Sonographic estimated date of delivery: 02/23/2023. Estimated Weight: 351 gm (+/- 52 gm). LMP percentile: 29%. heart rate: 143 beats per minute. number: 1 of 1. IMPRESSION: 1. Single live intrauterine gestation measuring at 20 weeks and 3 days, which is within range of the clinical dates. 2. Anatomic survey. The profile is not well seen, otherwise no abnormality is identified. 3. Breech presentation. Dictated by: Dictated on workstation # [id number]
== END ==
LOC: RAD 09:48
PROVIDERS: ATTEND Nurse Practitioner Women's Health
DX: O32.1XX0 Maternal care for breech presentation, not applicable or unspecified (principal); Z3A.20 20 weeks gestation of pregnancy
CPT/HCPCS: 76805

== ENCOUNTER 2023-02-08 06:19 | Inpatient (IN) | payer BC ==
[2023-02-08] VITALS (47 sets, daily range): BP systolic 79–158; BP diastolic 50–79
[~2023-02-08] VITALS: Ht 154.9 cm; Wt 84.9 kg
[2023-02-08] MEDS ORDERED: DOCO200C4 PO (06:24)
--- OUTSIDE RECORDS SUMMARY | 2023-02-08 06:42 | XMS REPORT | Clinical Summary ---
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
--- NOTE | 2023-02-08 07:22 | History & Physical-OB ---
OB - Chief Complaint & HPI Date/Time Date of Admission: Date of Admission: Feb 08, 2023 at 06:19 Date seen by a Provider: Feb 08, 2023 Time Seen by a Provider: 07:15 Chief Complaint/History OB-Reason for Admission/Chief: Induction of Labor Hx : 4 Hx Para: 2 Gestational Age in Weeks: 38 Gestational Age in Days: 1 Admission Nurse Assessment Rev: Yes History of Labs O pos Antibody neg RI RPR NR HBsAg NR HIV NR GC neg GBS neg Allergies and Home Medications Allergies Coded Allergies: codeine (Verified Allergy, Mild, 01/13/14) meperidine (Verified Allergy, Mild, 01/13/14) morphine (Verified Allergy, Mild, 01/13/14) latex (Verified Allergy, Unknown, 04/10/16) Patient Home Medication List Home Medication List Reviewed: Yes Docusate Sodium (Docusate Sodium) 100 Mg Capsule, 100 MG PO BID PRN for CONSTIPATION-1ST LINE Prescribed by: BAO SANTANA on 01/31/19718 Ferrous Sulfate (Ferrous Sulfate) 325 Mg Tablet, 325 MG PO DAILY Prescribed by: BEBETO ROCK on 01/30/19827 Ibuprofen (Ibu) 600 Mg Tablet, 600 MG PO Q6HR Prescribed by: BAO SANTANA on 01/31/19718 Csw864/FA/Omega3/Dha/Fish Oil ( Gummies) 1 Each Tab.chew, 2 EACH PO DAILY, (Reported) Entered as Reported by: BEBETO ROCK on 01/30/19827 [Benzocaine/Menthol] 56 ML AEROSOL, 56 ML TP UD PRN for PAIN- SEE INSTRUCTIONS Prescribed by: BAO SANTANA on 01/31/19718 OB - History Hx of Present Care: Yes Ultrasounds: Normal mid trimester US (oligohydramnios) Obstetrical Complications: None Medical Complications: None Delivery History Hx Blood Disorders: No Adverse Rxn to Tranfusion: No Patient Past Medical History n/a OB - Admission Exam Physical Exam HEENT: NCAT Heart: Rhythm Normal Lungs: Clear Abdomen: Gravid Extremities: Normal Reflexes: Normal Cervical Dilatation: 2cm Effacement: 75% Station: -1 Membranes: Intact Heart Rate: 130's Decelerations: No Decelerations Short Term Variability: Present Care Home Variability: Minimal (3-5) Intensity: Mild OB - Assessment/Plan/Diagnosis Assessment Assessment: induction of labor Admission Dx 37 yo @ 38 weeks gestation Oligohydramnios Previous - TOLAC GBS neg Admission Status: Inpatient Order (span 2 midnights) Reason for Inpatient Admission: IOL at 38 weeks Plan Plan: Induction Induction Method: BAO HINSON DO Feb 08, 2023 07:22
[2023-02-08 08:10] LABS: BASOPHILS % (AUTO) 1 % (0-10); EOSINOPHILS # (AUTO) 0.1 10^3/uL (0.0-0.3); EOSINOPHILS % (AUTO) 1 % (0-10); HEMATOCRIT 30 % (35-52); HEMOGLOBIN 9.7 g/dL (11.5-16.0); LYMPHOCYTES # (AUTO) 1.4 10^3/uL (1.0-4.0); LYMPHOCYTES % (AUTO) 21 % (12-44); MEAN CORPUSCULAR HEMOGLOBIN 27 pg (25-34); MEAN CORPUSCULAR HGB CONC 33 g/dL (32-36); MEAN CORPUSCULAR VOLUME 84 fL (80-99); MEAN PLATELET VOLUME 11.6 fL (9.0-12.2); MONOCYTES # (AUTO) 0.6 10^3/uL (0.0-1.0); MONOCYTES % (AUTO) 9 % (0-12); NEUTROPHILS # (AUTO) 4.4 10^3/uL (1.8-7.8); NEUTROPHILS % (AUTO) 68 % (42-75); PLATELET COUNT 195 10^3/uL (130-400); WHITE BLOOD COUNT 6.4 10^3/uL (4.3-11.0)
[2023-02-08] MEDS ORDERED: fentaNYL 2 mcg/ml BUPIVA 0.125 100 ML ONE (08:10)
[2023-02-08 08:11] LABS: BILIRUBIN,URINE NEGATIVE (NEGATIVE); CLARITY,URINE SL CLOUDY; COLOR,URINE YELLOW; GLUCOSE, URINE (UA) NEGATIVE (NEGATIVE); KETONES,URINE NEGATIVE (NEGATIVE); LEUKOCYTE ESTERASE ,URINE 2+ (NEGATIVE); NITRITE,URINE NEGATIVE (NEGATIVE); PH,URINE 7.5 (5-9); PROTEIN,URINE 1+ (NEGATIVE)
[2023-02-08 08:28] LABS: BACTERIA,URINE LARGE /HPF; RBC,URINE RARE /HPF; SQUAMOUS EPITHELIAL CELL,UR >50 /HPF
[2023-02-08] MEDS: D5 LR IV SOLUTION 1,000 ML IV SCH ×2 (08:28→16:02)
[2023-02-08] MEDS ORDERED: fentaNYL INJ 100 MCG/2 ML AMP ONE (08:48)
[2023-02-08] MEDS ORDERED: BUPIVACAINE 0.25% 10 ML (SENSORCAINE) VIAL ONE (08:48)
[2023-02-08] MEDS ORDERED: OXYTOCIN PRE-MIX DRIP 500 ML IV ONE (09:15)
[2023-02-08] MEDS ORDERED: diphenhydrAMINE 50 MG/ML INJ (BENADRYL) IV PRN (10:00)
[2023-02-08] MEDS ORDERED: ONDANSETRON 4 MG/2 ML (SDV) Z0FRAN IV PRN (10:00)
[2023-02-08] MEDS ORDERED: LACTATED RINGERS 1,000 ML IV ONE (10:00)
[2023-02-08] MEDS ORDERED: NALOXONE 0.4 MG/ML 1 ML (NARCAN) VIAL IV PRN ×2 (10:00→17:15)
[2023-02-08] MEDS ORDERED: fentaNYL 2 mcg/ml BUPIVA 0.125 100 ML EPI SCH (10:00)
[2023-02-08] MEDS ORDERED: CATHETER FLUSH 10 ML SYR IV PRN (10:00)
[2023-02-08] MEDS ORDERED: CATHETER FLUSH 10 ML SYR IV SCH ×2 (14:00→22:00)
[2023-02-08] MEDS ORDERED: OXYTOCIN PRE-MIX DRIP 1,000 ML IV ONE (16:58)
[2023-02-08] MEDS: OXYTOCIN PRE-MIX DRIP 500 ML IV SCH ×2 (16:58→17:55)
[2023-02-08] MEDS ORDERED: MEASLES,MUMPS,RUBELLA 1 EA INJ SQ ONE (17:15)
[2023-02-08] MEDS ORDERED: DIBUCAINE 1% OINTMENT 28 GM TUBE TOP PRN (17:15)
[2023-02-08] MEDS ORDERED: TETANUS,DIPTH,PERTUSS P/F (BOOSTRIX) 0.5 ML VIAL IM ONE (17:15)
[2023-02-08] MEDS ORDERED: BENZOCAINE/MENTHOL (DERMOPLAST) 56 ML CAN TP PRN (17:15)
[2023-02-08] MEDS ORDERED: WITCH HAZEL(TUCKS) 40 EA JAR TOP PRN (17:15)
--- NOTE | 2023-02-08 17:20 | OB Labor & Delivery Record ---
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 (6-10) Short Term Variability: Present Presentation: Vertex Vital Signs VS - Last 72 Hours, by Label 02/08/23 02/08/23 02/08/23 02/08/23 07:33 07:48 08:00 08:02 Temp 36.6 37.2 Pulse 60 67 84 67 Resp 18 B/P (MAP) 88/54 (65) 94/64 (74) 97/65 (76) Pulse Ox 99 O2 Delivery Room Air 02/08/23 02/08/23 02/08/23 02/08/23 08:17 08:33 08:47 08:52 Pulse 71 80 85 84 B/P (MAP) 108/66 (80) 101/63 (76) 93/66 (75) Pulse Ox 97 O2 Delivery Room Air 02/08/23 02/08/23 02/08/23 02/08/23 09:00 09:06 09:10 09:14 Pulse 86 72 75 65 Resp 18 18 18 18 B/P (MAP) 116/64 (81) 79/61 (67) 99/52 (68) 90/57 (68) Pulse Ox 100 100 100 100 O2 Delivery Room Air Room Air Room Air Room Air 02/08/23 02/08/23 02/08/23 02/08/23 09:17 09:24 09:28 09:33 Pulse 65 60 72 65 Resp 18 18 B/P (MAP) 93/55 (68) 94/55 (68) 89/59 (69) Pulse Ox 97 100 99 100 O2 Delivery Room Air Room Air Room Air Room Air 02/08/23 02/08/23 02/08/23 02/08/23 09:38 09:43 09:48 09:53 Pulse 66 65 71 76 B/P (MAP) 98/53 (68) Pulse Ox 99 100 100 100 O2 Delivery Room Air Room Air Room Air Room Air 02/08/23 02/08/23 02/08/23 02/08/23 09:58 10:03 10:08 10:13 Pulse 72 65 65 68 B/P (MAP) 102/55 (71) 104/57 (73) Pulse Ox 100 100 100 100 O2 Delivery Room Air Room Air Room Air Room Air 02/08/23 02/08/23 02/08/23 02/08/23 10:30 11:13 11:27 11:45 Pulse 60 76 65 64 B/P (MAP) 106/62 (77) 105/62 (76) 88/50 (63) 91/55 (67) 02/08/23 02/08/23 02/08/23 02/08/23 11:58 12:13 12:28 12:43 Temp 36.9 Pulse 63 64 78 57 B/P (MAP) 85/52 (63) 114/64 (81) 116/71 (86) 106/68 (81) 02/08/23 02/08/23 02/08/23 02/08/23 12:58 13:13 13:28 13:43 Pulse 61 58 63 62 B/P (MAP) 103/67 (79) 109/63 (78) 114/71 (85) 113/76 (88) 02/08/23 02/08/23 02/08/23 02/08/23 13:58 14:13 14:28 14:43 Temp 37.0 Pulse 59 72 76 67 B/P (MAP) 104/71 (82) 117/68 (84) 96/63 (74) 118/69 (85) 02/08/23 02/08/23 02/08/23 15:13 15:32 16:00 Pulse 74 86 92 B/P (MAP) 117/75 (89) 130/58 (82) 113/74 (87) Rupture of Membranes Spontaneous Ruture of Membrane: Yes Amniotic Membrane Rupture Time: 0816 Amniotic Membrane Fluid Desc.: Clear Vaginal Bleeding Description: Normal Show Induction/Anesthesia Epidural Cath Placement - Time: 904 Progress/Notes Patient admitted for IOL due to oligohydramnios at 38 weeks. AROM and FSE placed, followed by epidural per TOLAC protocol. She was then augmented with pitocin and progressed to complete and + 2 station reaching a max dose of 12 mu. L&D Stage2 Stage Two Stage II Date: Feb 08, 2023 Monitors and Tracing Monitor Mode: External Heart Rate: 135 Monitor Accelerations: Uniform Monitor Decelerations: Variable Skilled Nursing Variability: Average (6-10) Short Term Variability: Present Position: Right Occiput Anterior Presentation: Vertex Cord Descript/Complications Cord Vessel Description: 3 Vessels Delivery Type Infant Delivery Method: Spontaneous Vaginal Anterior Shoulder: Right Episiotomy/Perineal Laceration Laceraction(s)/Extensions: Yes Episiotomy Description: Perineal Extension/lac, 2nd degree Degree (describe repair) laceration repaired using 3-0 vicryl in usual fashion. Condition of Delivery 1 minute Comment: 8 5 minute Comment: 9 Notes Live female infant weight 6lbs 15 oz. Condition of Condition of : Living Exam: No Observed Abnormalities Resuscitation Resuscitation: N/A - Spontaneous Resp L&D Stage3 Stage Three Stage III Date: Feb 08, 2023 Pictocin Pitocin Administration mu/min: 14 Pitocin ml/hr: 14 Pitocin Administration Comment: 0923 PITOCIN INFUSION STARTED. Placenta Delivery Placenta Delivery: Spontaneous Delivery Summary Summary Estimated blood loss (mL): 350 Attending at delivery: Bao Santana DO Condition of Delivery Examined: Cervix Examined, Uterus Explored Post Hemorrhage: No Condition of Mother stable Condition of Infant (s) stable BAO SANTANA DO Feb 08, 2023 17:20
[2023-02-08] MEDS: IBUPROFEN 600 MG (MOTRIN) TAB PO SCH (18:32)
[2023-02-08] MEDS: ACETAMINOPHEN 500 MG TAB (TYLENOL) PO SCH (18:33)
[2023-02-08] MEDS: DOCUSATE SODIUM 100 MG (COLACE) CAP PO SCH (20:23)
[2023-02-09 00:13] VITALS: BP 110/67
[2023-02-09] MEDS: ACETAMINOPHEN 500 MG TAB (TYLENOL) PO SCH ×2 (00:14→05:56)
[2023-02-09] MEDS: IBUPROFEN 600 MG (MOTRIN) TAB PO SCH ×2 (00:14→05:57)
[2023-02-09 05:30] LABS: BASOPHILS % (AUTO) 0 % (0-10); EOSINOPHILS # (AUTO) 0.1 10^3/uL (0.0-0.3); EOSINOPHILS % (AUTO) 1 % (0-10); HEMATOCRIT 24 % (35-52); HEMOGLOBIN 7.9 g/dL (11.5-16.0); LYMPHOCYTES # (AUTO) 1.8 10^3/uL (1.0-4.0); LYMPHOCYTES % (AUTO) 17 % (12-44); MEAN CORPUSCULAR HEMOGLOBIN 28 pg (25-34); MEAN CORPUSCULAR HGB CONC 33 g/dL (32-36); MEAN CORPUSCULAR VOLUME 85 fL (80-99); MEAN PLATELET VOLUME 11.5 fL (9.0-12.2); MONOCYTES # (AUTO) 0.8 10^3/uL (0.0-1.0); MONOCYTES % (AUTO) 7 % (0-12); NEUTROPHILS # (AUTO) 8.1 10^3/uL (1.8-7.8); NEUTROPHILS % (AUTO) 75 % (42-75); PLATELET COUNT 167 10^3/uL (130-400); WHITE BLOOD COUNT 10.8 10^3/uL (4.3-11.0)
[2023-02-09 05:57] VITALS: BP 113/70
[2023-02-09] MEDS ORDERED: PRENATAL VITAMIN 1 EA TAB PO SCH (07:00)
--- NOTE | 2023-02-09 07:59 | Anesthesia-Regional Post-Op ---
Regional Patient Condition Mental Status: Alert, Oriented x3 Circulation: Same as Pre-Op Headache: Absent Sensation: Full Recovery Motor Block: Absent Post Op Complications Complications None Follow Up Care/Instructions Patient Instructions None needed. Anesthesia/Patient Condition Patient is doing well, no complaints, stable vital signs, no apparent adverse anesthesia problems. No complications reported per nursing. [place] [facility] [place]: Yes ALMA TRAMMELL CRNA Feb 09, 2023 07:59
--- NOTE | 2023-02-09 08:38 | Postpartum Progress Note ---
Note Note Day # 1 Subjective: Patient is without complaints. Ambulating, voiding. Tolerating a regular diet without nausea or vomiting. Normal lochia. Pain is well controlled with oral pain medications. Objective: Physical Exam: General - Alert and oriented, no apparent distress Abdomen - Soft, appropriately tender to palpation, non-distended, fundus firm at umbilicus Extremities - no edema, negative Gloria's bilaterally Assessment: PPD 1 NVD Acute blood loss anemia Plan: Routine care. Encourage breast feeding. Encourage ambulation. Ferrous sulfate supplementation. Plan for discharge today Vitals - Labs Vital Signs - I&O Vital Signs Date Time Temp Pulse Resp B/P (MAP) Pulse Ox O2 Delivery O2 Flow Rate FiO2 02/09/23 05:57 36.1 70 18 113/70 (84) 100 Room Air 02/09/23 00:13 36.5 71 18 110/67 (81) 98 Room Air 02/08/23 20:23 37.2 84 18 122/72 (89) 98 Room Air 02/08/23 18:43 70 118/64 (82) 02/08/23 18:32 37.4 02/08/23 18:27 37.4 63 117/70 (86) 02/08/23 18:12 69 112/71 (85) 02/08/23 17:59 112 113/70 (84) 02/08/23 17:53 71 122/57 (78) 02/08/23 17:28 77 158/69 (98) 02/08/23 17:13 108 107/74 (85) 02/08/23 16:58 78 109/63 (78) 02/08/23 16:30 75 111/75 (87) 02/08/23 16:15 90 113/79 (90) 02/08/23 16:00 92 113/74 (87) 02/08/23 15:32 86 130/58 (82) 02/08/23 15:13 74 117/75 (89) 02/08/23 14:43 67 118/69 (85) 02/08/23 14:28 37.0 76 96/63 (74) 02/08/23 14:13 72 117/68 (84) 02/08/23 13:58 59 104/71 (82) 02/08/23 13:43 62 113/76 (88) 02/08/23 13:28 63 114/71 (85) 02/08/23 13:13 58 109/63 (78) 02/08/23 12:58 61 103/67 (79) 02/08/23 12:43 57 106/68 (81) 02/08/23 12:28 78 116/71 (86) 02/08/23 12:13 36.9 64 114/64 (81) 02/08/23 11:58 63 85/52 (63) 02/08/23 11:45 64 91/55 (67) 02/08/23 11:27 65 88/50 (63) 02/08/23 11:13 76 105/62 (76) 02/08/23 10:30 60 106/62 (77) 02/08/23 10:13 68 104/57 (73) 100 Room Air 02/08/23 10:08 65 100 Room Air 02/08/23 10:03 65 100 Room Air 02/08/23 09:58 72 102/55 (71) 100 Room Air 02/08/23 09:53 76 100 Room Air 02/08/23 09:48 71 100 Room Air 02/08/23 09:43 65 98/53 (68) 100 Room Air 02/08/23 09:38 66 99 Room Air 02/08/23 09:33 65 100 Room Air 02/08/23 09:28 72 89/59 (69) 99 Room Air 02/08/23 09:24 60 18 94/55 (68) 100 Room Air 02/08/23 09:17 65 18 93/55 (68) 97 Room Air 02/08/23 09:14 65 18 90/57 (68) 100 Room Air 02/08/23 09:10 75 18 99/52 (68) 100 Room Air 02/08/23 09:06 72 18 79/61 (67) 100 Room Air 02/08/23 09:00 86 18 116/64 (81) 100 Room Air 02/08/23 08:52 84 97 Room Air 02/08/23 08:47 85 93/66 (75) I & O 02/09/23 07:00 Intake Total 2000 ml Balance 2000 ml Labs Laboratory Tests 02/09/23 05:17: White Blood Count 10.8, Red Blood Count 2.85L, Hemoglobin 7.9L, Hematocrit 24L, Mean Corpuscular Volume 85, Mean Corpuscular Hemoglobin 28, Mean Corpuscular Hemoglobin Concent 33, Red Cell Distribution Width 13.6, Platelet Count 167, Mean Platelet Volume 11.5, Immature Granulocyte % (Auto) 0, Neutrophils (%) (Auto) 75, Lymphocytes (%) (Auto) 17, Monocytes (%) (Auto) 7, Eosinophils (%) (Auto) 1, Basophils (%) (Auto) 0, Neutrophils # (Auto) 8.1H, Lymphocytes # (Auto) 1.8, Monocytes # (Auto) 0.8, Eosinophils # (Auto) 0.1, Basophils # (Auto) 0.0, Immature Granulocyte # (Auto) 0.0 BAO SANTANA DO Feb 09, 2023 08:38
--- NOTE | 2023-02-09 08:40 | Discharge Inst-Women's Service ---
Discharge Inst-Women's Serv Depart Medication/Instructions New, Converted or Re-Newed RX: Transmitted to Pharmacy Problems Reviewed?: Yes Consults/Follow Up Additional Follow Up: Yes Activity Activity: Activity as Tolerated Driving Instructions: No Driving for 1 Week NO SMOKING: NO SMOKING Nothing Inside Vagina: No Douching, No [place], No Tampons Diet Discharge Diet: No Restrictions Symptoms to Report to : Bleeding Excessive, Pain Increased, Fever Over 101 Degrees F, Vaginal Bleeding Increase, Questions/Concerns For Any Problems or Questions: Contact Your Physician BAO SANTANA DO Feb 09, 2023 08:40
[2023-02-09] MEDS ORDERED: FERR325T24 PO (08:41)
[2023-02-09] MEDS ORDERED: IBUP-844 PO (08:41)
[2023-02-09] MEDS ORDERED: BENZ78AE5 TP (08:41)
[2023-02-09] MEDS ORDERED: DOCU100C37 PO (08:41)
[2023-02-09] MEDS ORDERED: ACET-93 PO (08:41)
[2023-02-09] MEDS ORDERED: FERROUS SULF 325 MG (IRON) TAB PO SCH (09:00)
[2023-02-09 09:58] VITALS: BP 112/75
[2023-02-09] MEDS: DOCUSATE SODIUM 100 MG (COLACE) CAP PO SCH (09:58)
== END 2023-02-09 19:05 | disposition home or self-care (01) | DRG 806 ==
LOC: LDRP 06:19
PROVIDERS: ADMIT Obstetrics & Gynecology; ATTEND Obstetrics & Gynecology
PROC: 10E0XZZ Delivery of Products of Conception, External Approach (ICD-10-PCS; principal; 2023-02-08)
PROC: 0KQM0ZZ Repair Perineum Muscle, Open Approach (ICD-10-PCS; 2023-02-08)
PROC: 0W8NXZZ Division of Female Perineum, External Approach (ICD-10-PCS; 2023-02-08)
PROC: 10907ZC Drainage of Amniotic Fluid, Therapeutic from Products of Conception, Via Natural or Artificial Opening (ICD-10-PCS; 2023-02-08)
PROC: 10H073Z Insertion of Monitoring Electrode into Products of Conception, Via Natural or Artificial Opening (ICD-10-PCS; 2023-02-08)
DX: O41.03X0 Oligohydramnios, third trimester, not applicable or unspecified (principal); D62 Acute posthemorrhagic anemia; Z37.0 Single live birth; Z3A.38 38 weeks gestation of pregnancy; O34.211 Maternal care for low transverse scar from previous cesarean delivery; Z91.040 Latex allergy status; O90.81 Anemia of the puerperium
CPT/HCPCS: 36415; 81000; 85025; 86780; 86850; 86900; 86901; 87088

== ENCOUNTER 2023-03-18 06:57 | Outpatient (CLI) | payer BC ==
[~2023-03-18] VITALS: Ht 154.9 cm; Wt 73.6 kg
[~2023-03-18 06:57] MED LIST changes: +ACET-93 PO; +BENZ78AE5 TP; +DOCO200C4 PO; +FERR325T24 PO
== END 2023-03-18 13:49 | disposition home or self-care (01) ==
LOC: PREOP 06:57
PROVIDERS: ATTEND Surgery
DX: Z01.818 Encounter for other preprocedural examination (principal)

== ENCOUNTER 2023-03-25 11:15 | Day surgery (SDC) | payer BC ==
[2023-03-25] VITALS (10 sets, daily range): BP systolic 100–112; BP diastolic 64–81
[~2023-03-25] VITALS: Ht 154.9 cm; Wt 73.6 kg
[2023-03-25] MEDS ORDERED: LACTATED RINGERS 1,000 ML 1,000 ML IV PRN (12:00)
[2023-03-25] MEDS ORDERED: ceFAZolin INJECTION 2,000 MG in NS (IVPB) 50 ML 50 ML IV ONE (12:00)
[2023-03-25] MEDS ORDERED: LIDOCAINE/EPI 1%-1:200,000 (XYLOCAINE) 30 ML VIAL ONE (12:00)
--- NOTE | 2023-03-25 12:10 | Progress Note-Pre Operative ---
Pre-Operative Progress Note Date H&P Reviewed: Mar 25, 2023 Time H&P Reviewed: 12:05 History & Physical: H&P Reviewed, Patient Examed, No changes noted Pre-Operative Diagnosis: Umbilical hernia SELAM LIN CODING CLERK Mar 25, 2023 12:10
[2023-03-25] MEDS ORDERED: HYDR-3817 PO (12:11)
--- NOTE | 2023-03-25 12:12 | Discharge Inst-Surgical ---
D/C Lap Instructions-KIDO Reconcile Patient Problems Problems Reviewed?: Yes New, Converted, or Re-Newed RX: RX on Chart Follow Up Appt in 2 weeks Activity as tolerated No driving for 24 hours No driving while on pain medications Incentive Spirometry use every 2 hours while awake Regular Diet Symptoms to Report: Fever over 101 degree F, Nausea/Vomiting Infection Signs and Symptoms to report: Increased redness, Foul odor of wound, Increased drainage Bathing instructions: May shower Operative Area Clean/Dry; Keep incision clean/dry If any problems/questions: Contact your physician or go to Emergency Room SELAM LIN APRN Mar 25, 2023 12:12
[2023-03-25] MEDS ORDERED: ACETAMINOPHEN 325 MG TABLET PO PRN (12:15)
[2023-03-25] MEDS ORDERED: ONDANSETRON INJECTION 4 MG/2 ML (SDV) IVP PRN ×2 (12:15→13:30)
[2023-03-25] MEDS ORDERED: HYDROcodone/ACETAMINOPHEN 5 MG/325 MG TABLET PO ONE (12:15)
[2023-03-25] MEDS ORDERED: fentaNYL INJECTION 100 MCG/2 ML VIAL IVP PRN (12:15)
[2023-03-25] MEDS ORDERED: NS (IVPB) 50 ML 50 ML ONE (12:17)
[2023-03-25] MEDS ORDERED: ceFAZolin INJECTION 2,000 MG ONE (12:17)
[2023-03-25] MEDS ORDERED: fentaNYL INJECTION 100 MCG/2 ML VIAL ONE (12:18)
[2023-03-25] MEDS ORDERED: MIDAZOLAM INJ 2 MG/2 ML VIAL ONE (12:18)
[2023-03-25] MEDS ORDERED: proPOfol INJECTION 200 MG/20 ML VIAL IV ONE (12:59)
[2023-03-25] MEDS ORDERED: dexAMETHasone INJ 10 MG/ML 1 ML VIAL ONE (12:59)
[2023-03-25] MEDS ORDERED: ONDANSETRON INJECTION 4 MG/2 ML (SDV) ONE (12:59)
[2023-03-25] MEDS ORDERED: ROCURONIUM 50 MG/5 ML VIAL IV ONE (12:59)
[2023-03-25] MEDS ORDERED: LIDOCAINE PF 2% 5 ML VIAL ONE (12:59)
[2023-03-25] MEDS ORDERED: SUGAMMADEX 500 MG/5 ML VIAL (BRIDION) IV ONE (13:06)
--- NOTE | 2023-03-25 13:21 | Anesthesia-General Post-Op ---
General Patient Condition Mental Status/LOC: Same as Preop Cardiovascular: Satisfactory Nausea/Vomiting: Absent Respiratory: Satisfactory Pain: Controlled Complications: Absent Post Op Complications Complications None Follow Up Care/Instructions Patient Instructions None needed. Anesthesia/Patient Condition Patient Condition Patient is doing well, no complaints, stable vital signs, no apparent adverse anesthesia problems. No complications reported per nursing. ALFREDO FONSECA CRNA Mar 25, 2023 13:21
--- NOTE | 2023-03-25 13:23 | Progress Note-Post Operative ---
Post-Operative Progess Note Surgeon (s)/Ferry Boat Captain (s) Surgeon MIGUE GRANADO MD Ferry Boat Captain: pasquale guzmán DISTANCE EDUCATION DIRECTOR Pre-Operative Diagnosis Umbilical hernia Post-Operative Diagnosis reducible umbilical hernia Procedure & Operative Findings Date of Procedure 03/25/23 Procedure Performed/Findings open primary umbilical hernia repair Anesthesia Type get Estimated Blood Loss Estimated blood loss (mL): minimal Specimens/Packing Specimens Removed none MIGUE GRANADO MD Mar 25, 2023 13:23
[2023-03-25] MEDS ORDERED: fentaNYL INJECTION 100 MCG/2 ML VIAL IVP ONE (13:30)
--- NOTE | 2023-03-25 20:22 | OPERATIVE REPORT ---
DATE OF SERVICE: 03/25/2023 ATTENDING PRIMARY CARE PHYSICIAN: Laya Méndez DO PREOPERATIVE DIAGNOSIS: Symptomatic reducible umbilical hernia. POSTOPERATIVE DIAGNOSIS: Symptomatic reducible umbilical hernia. PROCEDURE: Open primary umbilical hernia repair. SURGEON: Migue Granado MD ANESTHESIA: General endotracheal. ESTIMATED BLOOD LOSS: Minimal. FINDINGS: Symptomatic reducible umbilical hernia. DISPOSITION: The patient tolerated the procedure well. INDICATIONS: The patient is a 38-year-old female who developed an outpouching associated pain in the umbilical region, one year ago. Over time, this has become more frequent as well as more painful. She was seen in the office and found to have a reducible umbilical hernia; however, tender to palpation. She is otherwise eating well and having normal bowel movements. DESCRIPTION OF PROCEDURE: The patient was brought to the operating room, laid supine on the table. After adequate IV pain and sedative medications and general endotracheal intubation, the abdomen was prepped and draped in standard surgical fashion. A 0.5% Marcaine with epinephrine was used to anesthetize the overlying skin in the infraumbilical rim and a crescent-shaped skin incision made using a #15 blade. Subcutaneous tissue was then dissected down to the fascia using electrocautery. The hernia sac was identified and completely dissected out using blunt dissection as well as electrocautery. The hernia sac was then opened with Metzenbaum scissors with only a small amount of omentum within the hernia sac and the hernia sac was fully excised using electrocautery. The fascial defect was very small, approximately 4 mm in size. We decided to proceed with a primary repair and the fascia was retracted anteriorly using a Mattie clamp and at the corners of the defect, 0 Prolene sutures were placed and tags applied and the fascia and abdominal wall retracted anteriorly. We then proceeded with a primary approximation of the fascial defect using interrupted 0 Prolene sutures in a transverse manner. Good hemostasis was observed. Subcutaneous tissue was then reapproximated using 3-0 Vicryl interrupted sutures. Skin was closed using 4-0 Monocryl running subcuticular suture. Wound was then cleaned and covered with Dermabond. The umbilicus was then filled with tonsil sponges followed by 4 x 4 gauze followed by large Op-Site and abdominal binder. The patient tolerated the procedure well. We will start IV normal pain medication as well as a clear liquid diet. Once she is tolerating clears, has good pain control with oral pain medication and is ambulating well, we will discharge her home where she will be instructed no heavy lifting or exertion for the next 2 weeks. Job ID: [id number] DocumentID: [id number] Dictated Date: 03/25/2023 13:27:59 Pediatric Audiologist Date: 03/25/2023 20:20:00 Dictated By: MIGUE GRANADO MD
== END 2023-03-25 15:05 ==
LOC: SDC 11:15
PROVIDERS: ATTEND Surgery
DX: K42.9 Umbilical hernia without obstruction or gangrene (principal); E66.9 Obesity, unspecified; Z68.30 Body mass index [BMI] 30.0-30.9, adult
CPT/HCPCS: 84703; 87081